=== PATIENT | female | born 1940 | race Caucasian/White ===

== ENCOUNTER → 2021-04-22 | Outpatient (REF) | payer MEDICARE ==
[~2021-04-22] MED LIST: ALBU8.5H INH; AMLO1TAB24 PO; ASPI1CHW3 PO; ATEN25TA PO; BACL10TA2 PO; BUSP10TA PO; CLOP75TA2 PO; FAMO20TA5 PO; FLUTISP; FURO20TA2 PO; HYDR-3713 PO; LEVO50TA5 PO; ROSU10TA6 PO; SPIR12.9 INH; TRAM100T21 PO
== END ==
LOC: M LAB REF 13:21
PROVIDERS: ATTEND Nurse Practitioner Family
DX: E83.42 Hypomagnesemia (principal)

== ENCOUNTER → 2021-10-01 | Outpatient (CLI) | payer MEDICARE | LOC: M PAIN 09:00 | PROVIDERS: ATTEND Anesthesiology | DX: M79.10 Myalgia, unspecified site (principal); M79.18 Myalgia, other site; M54.50 Low back pain, unspecified; M54.16 Radiculopathy, lumbar region; I12.9 Hypertensive chronic kidney disease with stage 1 through stage 4 chronic kidney disease, or unspecified chronic kidney disease; J44.9 Chronic obstructive pulmonary disease, unspecified; N18.30 Chronic kidney disease, stage 3 unspecified; E55.9 Vitamin D deficiency, unspecified; F32.A Depression, unspecified; E78.00 Pure hypercholesterolemia, unspecified; N25.81 Secondary hyperparathyroidism of renal origin; Z87.891 Personal history of nicotine dependence; Z79.891 Long term (current) use of opiate analgesic; Z79.02 Long term (current) use of antithrombotics/antiplatelets; Z79.899 Other long term (current) drug therapy ==

== ENCOUNTER → 2021-10-28 | Outpatient (CLI) | payer MEDICARE | LOC: M PLAIMG 13:15 | PROVIDERS: ATTEND Anesthesiology | DX: M51.36 Other intervertebral disc degeneration, lumbar region (principal); I71.4 Abdominal aortic aneurysm, without rupture ==

== ENCOUNTER 2021-11-25 07:57 | Day surgery (SDC) | payer MEDICARE ==
[~2021-11-25] VITALS: Ht 152.4 cm; Wt 63.5 kg
[~2021-11-25 07:57] MED LIST changes: +NS 1,000 ML IV ONE
[2021-11-25] MEDS ORDERED: LIDOCAINE 2% 100MG/5ML SDV (FOR ANES.) As Ordered ONE (10:21)
[2021-11-25] MEDS ORDERED: propofoL 200 MG/20 ML VIAL As Ordered ONE (10:21)
[2021-11-25 10:46] VITALS: BP 166/70
== END 2021-11-25 11:04 | disposition home or self-care (01) ==
LOC: M OPP 07:57
PROVIDERS: ATTEND Internal Medicine Gastroenterology
DX: Z86.010 Personal history of colon polyps (principal); Z80.0 Family history of malignant neoplasm of digestive organs; K63.5 Polyp of colon; K57.30 Diverticulosis of large intestine without perforation or abscess without bleeding; K64.8 Other hemorrhoids; I10 Essential (primary) hypertension; E78.5 Hyperlipidemia, unspecified; E03.9 Hypothyroidism, unspecified; M19.90 Unspecified osteoarthritis, unspecified site; F41.9 Anxiety disorder, unspecified; F03.90 Unspecified dementia, unspecified severity, without behavioral disturbance, psychotic disturbance, mood disturbance, and anxiety; J44.9 Chronic obstructive pulmonary disease, unspecified; Z87.891 Personal history of nicotine dependence; Z79.82 Long term (current) use of aspirin; Z79.899 Other long term (current) drug therapy; Z80.1 Family history of malignant neoplasm of trachea, bronchus and lung

== ENCOUNTER → 2022-01-27 | Outpatient (CLI) | payer MEDICARE ==
[~2022-01-27] MED LIST changes: -NS 1,000 ML IV ONE
== END ==
LOC: M PAIN 10:00
PROVIDERS: ATTEND Nurse Practitioner Family
DX: M79.10 Myalgia, unspecified site (principal); M54.16 Radiculopathy, lumbar region; G89.29 Other chronic pain; I10 Essential (primary) hypertension; J44.9 Chronic obstructive pulmonary disease, unspecified; Z87.891 Personal history of nicotine dependence; E66.01 Morbid (severe) obesity due to excess calories; Z68.41 Body mass index [BMI] 40.0-44.9, adult; Z79.01 Long term (current) use of anticoagulants; Z79.891 Long term (current) use of opiate analgesic; Z79.899 Other long term (current) drug therapy

== ENCOUNTER → 2022-03-13 | Outpatient (REF) | payer MEDICARE ==
[2022-03-13 18:28] LABS: PERCENT SATURATION 17.3 % (13.2-45.0)
== END ==
LOC: M LAB REF 17:02
PROVIDERS: ATTEND Nurse Practitioner Family
DX: D64.9 Anemia, unspecified (principal)

== ENCOUNTER 2023-07-21 08:26 | Day surgery (SDC) | payer MEDICARE, OTHER ==
[~2023-07-21] VITALS: Ht 147.3 cm; Wt 73.5 kg
[~2023-07-21 08:26] MED LIST changes: +ASPI-655 PO; -ASPI1CHW3 PO
[2023-07-21] MEDS: PHENYLEPHRINE 2.5% OPHTH SOL 2ML OD SCH (09:35)
[2023-07-21] MEDS: PHENYLEPHRINE 10% OPHTH SOL 5ML OD PRN (09:35)
[2023-07-21] MEDS: OFLOXACIN 0.3 % (OCUFLOX) OPTH SOL 5ML OD ONE (09:35)
[2023-07-21] MEDS: LIDOCAINE 3.5 % 1ML OPHTH TOPICAL GEL OU ONE (09:35)
[2023-07-21] MEDS: TROPICAMIDE 1% OPHTH SOLN 15ML OD SCH (09:35)
[2023-07-21] MEDS: CYCLOPENTOLATE 1% OPHTH SOLN 2ML BTL OD SCH (09:35)
[2023-07-21] MEDS ORDERED: MIDAZOLAM 5MG/ML 1ML VIAL As Ordered ONE (10:18)
[2023-07-21] MEDS: BSS IRRIG/VANCO(10MG)/TOBRA(5MG)/EPINEPH(1:1000-0.5CC)500ML BAG-ORONLY As Ordered ONE (10:47)
[2023-07-21] MEDS: LIDOCAINE 1% SDV 5ML VIAL As Ordered ONE (10:47)
[2023-07-21] MEDS: CEFUROXIME 1MG/0.1ML INTRACAMERAL INJ As Ordered ONE (10:47)
[2023-07-21 11:00] VITALS: BP 165/71; TEMP 97.8; O2SAT 95
[2023-07-23] MEDS ORDERED: ALLO100T PO (07:53)
[2023-07-23] MEDS ORDERED: RENATAB6 PO (07:53)
[2023-07-23] MEDS ORDERED: ATIV1TAB10 PO (07:53)
[2023-07-23] MEDS ORDERED: HYDR-3713 PO (07:53)
[2023-07-23] MEDS ORDERED: HYDR-3363 PO (07:53)
== END 2023-07-21 11:28 | disposition home or self-care (01) ==
LOC: M SDC 08:26
PROVIDERS: ATTEND Ophthalmology
DX: H25.11 Age-related nuclear cataract, right eye (principal); I10 Essential (primary) hypertension; E03.9 Hypothyroidism, unspecified; E78.00 Pure hypercholesterolemia, unspecified; M19.90 Unspecified osteoarthritis, unspecified site; Z95.828 Presence of other vascular implants and grafts; Z79.899 Other long term (current) drug therapy; Z79.02 Long term (current) use of antithrombotics/antiplatelets; Z79.82 Long term (current) use of aspirin; Z79.890 Hormone replacement therapy; Z87.891 Personal history of nicotine dependence
CPT/HCPCS: 66984; J0697; J2250; V2632

== ENCOUNTER 2023-07-28 09:05 | Day surgery (SDC) | payer OTHER ==
[~2023-07-28] VITALS: Ht 147.3 cm; Wt 72.1 kg
[~2023-07-28 09:05] MED LIST changes: +ALLO100T PO; +ATIV1TAB10 PO; +HYDR-3363 PO; +PHENYLEPHRINE 10% OPHTH SOL 5ML OS PRN; +RENATAB6 PO
[2023-07-28] MEDS: PHENYLEPHRINE 2.5% OPHTH SOL 2ML OS SCH (10:40)
[2023-07-28] MEDS: CYCLOPENTOLATE 1% OPHTH SOLN 2ML BTL OS SCH (10:40)
[2023-07-28] MEDS: LIDOCAINE 3.5 % 1ML OPHTH TOPICAL GEL OU ONE (10:41)
[2023-07-28] MEDS: OFLOXACIN 0.3 % (OCUFLOX) OPTH SOL 5ML OS ONE (10:41)
[2023-07-28] MEDS: TROPICAMIDE 1% OPHTH SOLN 15ML OS SCH (10:41)
[2023-07-28] MEDS: CEFUROXIME 1MG/0.1ML INTRACAMERAL INJ As Ordered ONE (11:12)
[2023-07-28] MEDS: LIDOCAINE 1% SDV 5ML VIAL As Ordered ONE (11:12)
[2023-07-28] MEDS: BSS IRRIG/VANCO(10MG)/TOBRA(5MG)/EPINEPH(1:1000-0.5CC)500ML BAG-ORONLY As Ordered ONE (11:12)
[2023-07-28] MEDS ORDERED: fentaNYL 100 MCG/2 ML INJECTION As Ordered ONE (11:18)
[2023-07-28] MEDS ORDERED: MIDAZOLAM INJ 2MG/2ML VIAL As Ordered ONE (11:18)
[2023-07-28 11:24] VITALS: BP 159/67; TEMP 97; O2SAT 97
== END 2023-07-28 12:18 | disposition home or self-care (01) ==
LOC: M SDC 09:05
PROVIDERS: ATTEND Ophthalmology
DX: H25.12 Age-related nuclear cataract, left eye (principal); I10 Essential (primary) hypertension; J44.9 Chronic obstructive pulmonary disease, unspecified; E03.9 Hypothyroidism, unspecified; E78.00 Pure hypercholesterolemia, unspecified; Z79.899 Other long term (current) drug therapy; Z79.890 Hormone replacement therapy; Z79.02 Long term (current) use of antithrombotics/antiplatelets; Z90.49 Acquired absence of other specified parts of digestive tract; Z80.0 Family history of malignant neoplasm of digestive organs
CPT/HCPCS: 66984; J0697; J2250; J3010; V2632